=== PATIENT | female | born 2000 | race African-American/Black ===

== ENCOUNTER 2019-01-12 15:07 | Emergency (ER) | payer MEDICAID, OTHER ==
--- NOTE | 2019-01-12 16:21 | ER Document Report ---
ED Medical Screen (RME) - General Chief Complaint: Toe Injury Stated Complaint: TOE PAIN Time Seen by Provider: 01/12/19 16:21 Primary Care Provider: LEANNE MENCHACA MD [Primary Care Provider] - Follow up as needed TRAVEL OUTSIDE OF THE [place] IN LAST 30 DAYS: No - Related Data Allergies/Adverse Reactions: No Known Allergies Allergy (Verified 01/12/19 15:07) Past Medical History Pulmonary Medical History: Reports: Hx Asthma - Immunizations Immunizations up to date: Yes Physical Exam - Vital signs Vitals: Temp Pulse Resp BP Pulse Ox 99.5 F 125 H 18 154/99 H 98 01/12/19 15:31 01/12/19 15:31 01/12/19 15:31 01/12/19 15:31 01/12/19 15:31 Course - Vital Signs Vital signs: Temp Pulse Resp BP Pulse Ox 99.5 F 125 H 18 154/99 H 98 01/12/19 15:31 01/12/19 15:31 01/12/19 15:31 01/12/19 15:31 01/12/19 15:31 Doctor's Discharge - Discharge Referrals: LEANNE MENCHACA MD [Primary Care Provider] - Follow up as needed
--- NOTE | 2019-01-12 16:40 | ER Document Report ---
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 denies any bleeding currently. denies any excessive blood loss or acute blood loss sx. no hx of bleeding or clotting disorders. states also may have recently cut her toe nails a little too short. no numbness,weakness or tingling. no surgeries on this extremity. hasn't taken anything for her sx. bleeding spontaneously stopped once she stopped picking at her toe and left it alone very soon after. hasn't sought care until now. no pain anywhere else. pt able to walk. denies intoxication. pain worse with movement and palpation. better with rest. denies . she requests a work note. no hx of diabetes. no recent abx or steroids. hasn't put anything on the area. no other fall or trauma or associated sx Associated Symptoms: denies: Fever, Leg swelling, Shortness of breath, Weakness Exacerbated by: Standing, Movement, Walking Relieved by: Remaining still Similar symptoms previously: No Recently seen / treated by doctor: No - ROS Systems Reviewed and Negative: Yes All other systems reviewed and negative - to include 10 systems, unless mentioned in the hpi - REPRODUCTIVE Reproductive: DENIES: : Past Medical History - General Information source: Patient, Parent - mom - Social History Smoking Status: Unknown if Ever Smoked Frequency of alcohol use: None Drug Abuse: None Family History: Reviewed & Not Pertinent Pulmonary Medical History: Reports: Hx Asthma - prn when sick. stable, mild, controlled Endocrine Medical History: Reports: None. Denies: Hx Diabetes Mellitus Type 1, Hx Diabetes Mellitus Type 2 Surgical Hx: Negative - Immunizations Immunizations up to date: Yes Hx Diphtheria, Pertussis, Tetanus Vaccination: Yes Vertical Provider Document - CONSTITUTIONAL Exam Limitations: No Limitations Notes: GENERAL_APPEARANCE: alert and oriented x 3, mood and affect wnl, cooperative, no obvious discomfort. Pleasant, obese young black female, smiling, speaking in full sentences, in no sign of pain or resp distress, easily sitting up, mother and siblings at bedside VITALS: reviewed, see vital signs table. HEAD: no_swelling\tenderness on the head, normocephalic, atraumatic NECK: supple, no_neck_tenderness. full rom and full strength. no sign of central cord syndrome, meningitis, or spinal cord involvement HEART: RRR LUNGS: CTAB, good air exchange diffusely EXTREMITIES: good pulses in all extremities, right foot: right great toe: has no erythema, no swelling, mild tenderness around the lateral nail bed. no swelling or sign of infection. no drainable fluid collection. no erythema, no drainage, streaking, induration, fluctuation, sign of felon, or bleeding. no crepitation. no tinea unguium, no grossly overt ingrown toenail. nails are cut short however. no sugbungual hematoma. no sign of gout or septic jt. no ttp anywhere else and no_abrasions\lacerations other than as noted. Full rom and full strength. Normal gait. good hand carton folder. brisk cap refill. no other shortening or rotation of the limb or obvious deformities to suggest trauma unless otherwise noted. no other swelling or ttp. SKIN: warm, dry, good_color. no rash. no other grossly visible overlying skin changes to suggest trauma NEURO: motor_intact and sensory_intact in injured_extremity. cranial nerves 2- 12 intact - INFECTION CONTROL TRAVEL OUTSIDE OF THE [place] IN LAST 30 DAYS: No Course - Re-evaluation Re-evalutation: pt here for for mild irritation around her right great toe nail. she may have a developing ingrown toenail as she has been picking at the skin around the nail for the last few days and cut her toe nails too short. there is no sign of a drainable fluid collection, felon, tinea, or excisable ingrown toenail at this time. there is no sign of cellulitis or erythema or bleeding. no subungual hemorrhage. the pt also requests a work note. there was no other actual trauma to the area so no imaging was done. pt ambulates normally and didn't want any forms of immobilization. advised sx care. advised wound care and to monitor for signs of infection. i do not feel abx are warranted at this time given she is otherwise healthy, no significant pain, fevers, swelling, redness, discharge, or change in neurologic. otc meds for pain. epson salt soaks. advised to avoid picking at the skin on her toes and trimming her nails so short. advised to f/u with pcp/podiatry in 1-2 days. return for any worsening symptoms. vss. well appearing. satting well on ra. neurononfocal. pt understands and agrees to plan. On reexam, pt remained stable. nontoxic. well appearing. pain controlled. tolerating po. requesting to go home. neurononfocal. Documentation achieved through voice recording which my lead to some occasional accidental typographical errors. Extensive efforts have been made to proof read documentation to make sure these are the least as possible. - Vital Signs Vital signs: Temp Pulse Resp BP Pulse Ox 99.5 F 125 H 18 154/99 H 98 01/12/19 15:31 01/12/19 15:31 01/12/19 15:31 01/12/19 15:31 01/12/19 15:31 Temp Pulse Resp BP Pulse Ox 01/12/19 16:44 98.9 F 88 18 156/91 H 99 01/12/19 16:38 87 01/12/19 15:31 99.5 F 125 H 18 154/99 H 98 Discharge - Discharge Clinical Impression: Ingrowing right great toenail, Encounter to obtain excuse from work, Toe pain, right Condition: Good Disposition: HOME, SELF-CARE Instructions: Ingrown Nail ([facility]) Additional Instructions: Follow-up with PCP/podiatry 1 to 2 days. Return for any worsening symptoms. Epson salt soaks. Clean with warm soapy water. Neosporin to the area. Avoid picking the skin around the toenail or cutting your toenails too short. Forms: Return to Work Referrals: LEANNE MENCHACA MD [ACTIVE STAFF] - Follow up in 3-5 days
[2019-01-12 16:45] VITALS: BP 156/91
== END 2019-01-12 16:45 | disposition home or self-care (01) ==
LOC: ER 15:07
DX: L60.0 Ingrowing nail (principal); M79.674 Pain in right toe(s); J45.909 Unspecified asthma, uncomplicated; E66.9 Obesity, unspecified
CPT/HCPCS: 99283

== ENCOUNTER 2019-11-20 14:54 | Emergency (ER) | payer MEDICAID ==
--- NOTE | 2019-11-20 15:36 | ER Document Report ---
ED Extremity Problem, Lower - General Chief Complaint: Ankle Injury Stated Complaint: ANKLE INJURY Time Seen by Provider: 11/20/19 15:33 Primary Care Provider: [facility] [Provider Group] - Follow up as needed INEZ LUDWIG MD [Primary Care Provider] - Follow up as needed CAPRICE NICHOLSON DPM [ACTIVE STAFF] - Follow up as needed Mode of Arrival: Ambulatory Information source: Patient Notes: 19-year-old female presented to ED for complaint of pain to her low right ankle. Started 3 days ago when she was walking her dog. She states that is not getting better so she came to the emergency room to have it examined. She is alert oriented respirations regular nonlabored speaking in full sentences. TRAVEL OUTSIDE OF THE [place] IN LAST 30 DAYS: No - HPI Patient complains to provider of: Injury, Pain Location: Ankle Occurred: Other - 3 days ago Where: Outdoors Onset/Duration: Sudden - Walking the dog, Gradual Quality of pain: Achy Severity: Moderate Pain Level: 3 Context: Twisted Recent injury: Possibly Associated symptoms: Painful ambulation Exacerbated by: Hanging down, Movement, Walking Relieved by: Elevation, Ice - Related Data Allergies/Adverse Reactions: No Known Allergies Allergy (Verified 01/12/19 15:07) Past Medical History - General Information source: Patient - Social History Smoking Status: Never Smoker Frequency of alcohol use: None Drug Abuse: None Lives with: Family Family History: Reviewed & Not Pertinent Patient has suicidal ideation: No Patient has homicidal ideation: No - Past Medical History Cardiac Medical History: Reports: None Pulmonary Medical History: Reports: Hx Asthma - prn when sick. stable, mild, controlled EENT Medical History: Reports: None Neurological Medical History: Reports: None Endocrine Medical History: Reports: None Renal/ Medical History: Reports: None Malignancy Medical History: Reports: None GI Medical History: Reports: None Musculoskeletal Medical History: Reports None Skin Medical History: Reports None Psychiatric Medical History: Reports: None Traumatic Medical History: Reports: None Infectious Medical History: Reports: None Surgical Hx: Negative - Immunizations Immunizations up to date: Yes Hx Diphtheria, Pertussis, Tetanus Vaccination: Yes Review of Systems - Review of Systems Constitutional: No symptoms reported EENT: No symptoms reported Cardiovascular: No symptoms reported Respiratory: No symptoms reported Gastrointestinal: No symptoms reported Genitourinary: No symptoms reported Female Genitourinary: No symptoms reported Musculoskeletal: Ankle swelling - Pain and swelling Skin: No symptoms reported Hematologic/Lymphatic: No symptoms reported Neurological/Psychological: No symptoms reported Physical Exam - Vital signs Vitals: Temp Pulse Resp BP Pulse Ox 99.6 F 129 H 18 157/106 H 99 11/20/19 15:00 11/20/19 15:00 11/20/19 15:00 11/20/19 15:00 11/20/19 15:00 Interpretation: Normal - General General appearance: Appears well, Alert - HEENT Head: Normocephalic, Atraumatic Eyes: Normal Pupils: PERRL - Respiratory Respiratory status: No respiratory distress Chest status: Nontender Breath sounds: Normal Chest palpation: Normal - Cardiovascular Rhythm: Regular Heart sounds: Normal auscultation Murmur: No - Abdominal Inspection: Normal Distension: No distension Bowel sounds: Normal Tenderness: Nontender Organomegaly: No organomegaly - Back Back: Normal, Nontender - Extremities General upper extremity: Normal inspection, Nontender, Normal color, Normal ROM, Normal temperature General lower extremity: Normal color, Normal temperature. No: Antonella's sign Ankle: Tender, Edema, Limited ROM, Unable to bear weight Foot: Tender, Ecchymosis, Edema - Neurological Neuro grossly intact: Yes Cognition: Normal Orientation: AAOx4 Brenna Coma Scale Eye Opening: Spontaneous [place] Coma Scale Verbal: Oriented Brenna Coma Scale Motor: Obeys Commands Brenna Coma Scale Total: 15 Speech: Normal Motor strength normal: LUE, RUE, LLE, RLE Sensory: Normal - Psychological Associated symptoms: Normal affect, Normal mood - Skin Skin Temperature: Warm Skin Moisture: Dry Skin Color: Normal Course - Re-evaluation Re-evalutation: 11/20/19 23:30 The patient is nontoxic appearing with stable vitals. They are afebrile. Ankle exam shows no deformities with no obvious ligament instability. There is a normal pulse and sensation distally. There is no redness or signs of infection. X-rays show no acute fracture per the radiologist. Patient will be placed in an Joe wrap for comfort. Crutches will be offered and given if requested. Patient will be instructed to follow-up with not better in 1 week, sooner for increasing pain, fever, redness, numbness, tingling, weakness, any further concerns. Patient will be instructed to rest, ice, elevate their ankle. - Vital Signs Vital signs: Temp Pulse Resp BP Pulse Ox 98.9 F 102 H 18 148/101 H 100 11/20/19 16:55 11/20/19 16:55 11/20/19 16:55 11/20/19 16:55 11/20/19 16:55 - Diagnostic Test Radiology reviewed: Image reviewed, Reports reviewed Procedures - Immobilization Right Ankle Time completed: 16:55 Immobilizer type: Joe wrap, Ankle stirrup, Crutches Performed by: PCT Post-Proc Neuro Vasc Exam: Normal Alignment checked and good: Yes Discharge - Discharge Clinical Impression: Sprain of right ankle Qualifiers: Encounter type: initial encounter Involved ligament of ankle: unspecified ligam ent Qualified Code(s): S93.401A - Sprain of unspecified ligament of right ankle, initial encounter HTN (hypertension) Qualifiers: Hypertension type: unspecified Qualified Code(s): I10 - Essential (primary) hypertension Condition: Stable Disposition: HOME, SELF-CARE Additional Instructions: SPRAINED ANKLE: Your sprained ankle results from stretching or tearing of the ligaments which support the ankle. This usually results from twisting the foot inward and under. The ligaments will require time and protection in order to heal properly. Many ankle sprains are quite disabling, and should be taken seriously. The usual treatment for an ankle sprain is cold packs; protection with tape, splints, or wraps; elevation; and staying off the ankle for at least a day. As the ankle improves, you can walk IF it's not painful to bear weight. Sports are best postponed until healing is complete. More serious sprains usually require strengthening exercises after early healing. Your physician has assessed the seriousness of the ligament injury to your ankle. However, the treatment may change, depending on how your ankle progresses. If further exams were recommended, it is important that you follow through. Call the doctor if your foot becomes numb, painful, or severely swollen. ANKLE STIRRUP SPLINT: You are to use an ankle brace called a stirrup splint. This type of brace allows you to place greater stresses on the ankle without risk of re-injury, and is often used for more severe ankle injuries such as avulsion fractures and ligament ruptures. The splint can be worn over a sock or tape. For proper support, wear the splint with a shoe over it. It's important that the splint fit properly. Adjust the heel tension, if needed. If your splint has air bladders, peel back the bottom of each air bladder, then move the Velcro attachment of the heel strap up or down. Air bladder pressure can be adjusted by pulling up the valve at the top, threading the air tube down into the main bladder, then blowing air into the bladder or squeezing it out. The two sides of the stirrup can be moved forward or back on your ankle by changing the attachment of the main straps. If you are unable to use the ankle comfortably in the splint, return for re-evaluation. HIGH BLOOD PRESSURE REQUIRING TREATMENT: Your blood pressure is high. This is called "hypertension." Today's reading was _146/103 (normal is less than 140/90). Your history and exam suggest that this is not a temporary problem. You need treatment of your blood pressure. If left untreated, high blood pressure greatly increases your risk of heart attack and stroke. Please don't ignore this problem. If you have blood pressure medicine but aren't using it regularly, start taking it again. Some simple things you can do to help are: Get some aerobic exercise for at least 20 minutes on a daily basis. (See your doctor before beginning any new exercise program.) Eat a low-fat diet. Lose excess weight. Avoid salty foods and avoid adding salt to any of the foods you eat. Avoid diet pills, decongestants, "energizing" herbs, and other medicines that elevate blood pressure. There are many different medicines that treat blood pressure. If your medication causes unpleasant side effects, call your doctor. There are others you can try. Treating hypertension is a life-long investment in your health. CALCIUM CHANNEL BLOCKERS: A medication of the calcium channel rishi type has been prescribed for you. Examples of this type of medicine are Calan, Isoptin, Procardia, and Cardizem. These medicines have a variety of uses, including prevention of angina attacks, treatment of blood pressure, regulation of certain heart rhythm problems, and prevention of migraine headaches. Calcium channel blockers work by interfering with the flow of calcium in cell membranes. This results in dilation of blood vessels, and slowing of electrical conduction in the heart. A slight dizziness (due to a fall in blood pressure) may occur with the first dose, and sometimes even with later doses. This may make you prone to dizziness if you stand up suddenly. Call the doctor if lightheadedness is severe, or if you develop palpitations, shortness of breath, or any other new or alarming symptoms. JOE WRAP: A compression dressing (joe wrap) has been placed. This helps hold the area still. It limits swelling and internal bleeding. The wrap should be comfortably snug -- not tight. You should feel a sense of pressure, but not severe pain under the wrap. Unless the physician tells you otherwise, you can adjust the wrap for comfort. If the wrap causes symptoms suggesting it's too tight -- uncomfortable pressure, swelling or discoloration beyond the wrap, numbness, or severe pain -- you must loosen the wrap. If these symptoms don't resolve promptly, return for re-evaluation. USE OF CRUTCHES: The doctor has recommended that you not bear weight at this time. You will need to use crutches. Adjust the crutches so the tops come to about two inches under the armpit while you are standing upright. Use your hands -- not your armpits -- to support your weight. To get into a chair, support yourself with one crutch on the injured side. Hold the chair with the other hand, then lower yourself while putting all your weight on the good leg. Going up stairs is `good leg up, step up, then bring up crutches and bad leg.' Down stairs is `bad leg and crutches down, then bring good leg down.' If you develop numbness or swelling in an arm or hand, you are using the crutches incorrectly. Return if you are having any problems with the crutches. ICE & ELEVATION: Apply ice packs frequently against the painful area. Many different schedules are recommended, such as "20 minutes on, 20 minutes off" or "one hour ice, two hours rest." If you need to work, you may need to go longer between ice treatments. You should plan to have the area ice packed AT LEAST one-fourth of the time. The ice should be applied over the wrap, tape, or splint, or over a layer of cloth -- not directly against the skin. Some ice bags have a built-in cloth and can be put directly on the skin. Your injured part should be elevated as much as possible over the next 48 hours. Try to keep the injury above the level of the heart. Avoid use of the injured area. Elevation and rest will decrease the swelling. USE OF [id number] IBUPROFEN: Ibuprofen (Advil, Nuprin, Medipren, Motrin IB) is a medication for fever and pain control. In addition, it has anti- inflammatory effects which may be beneficial, especially in the treatment of injuries. It's best to take ibuprofen with food. Persons with ulcer disease or allergy to aspirin should notify their physician of this before taking ibuprofen. Ibuprofen can be given every four to six hours, for a total of four doses daily. Age Pain or fever dose Antiinflammatory dose 6-8 yr 200 mg (1 tab) 200 mg (1 tab) 9-11 yr 200 mg (1 tab) 200-400 mg (1-2 tab) 11-14 yr 200-400 mg (1-2 tab) 400 mg (2 tab) 15-adult 400 mg (2 tab) 600 mg (3 tab) FOLLOW-UP CARE: If you have been referred to a physician for follow-up care, call the physicians office for an appointment as you were instructed or within the next two days. If you experience worsening or a significant change in your symptoms, notify the physician immediately or return to the Emergency Department at any time for re-evaluation. Prescriptions: Naproxen 500 mg PO BIDP PRN #20 tablet PRN Reason: Amlodipine Besylate [Norvasc 5 mg Tablet] 5 mg PO DAILY #30 tablet Forms: Elevated Blood Pressure Referrals: INEZ LUDWIG MD [Primary Care Provider] - Follow up as needed [facility] [Provider Group] - Follow up as needed CAPRICE NICHOLSON DPM [ACTIVE STAFF] - Follow up as needed
--- NOTE | 2019-11-20 16:12 | RADIOLOGY REPORT (SQ) ---
EXAM DESCRIPTION: ANKLE RIGHT COMPLETE IMAGES COMPLETED DATE/TIME: 11/20/2019 3:53 pm REASON FOR STUDY: Pain right ankle COMPARISON: None. NUMBER OF VIEWS: Three views. TECHNIQUE: AP, lateral, and oblique radiographic images acquired of the right ankle. LIMITATIONS: None. FINDINGS: MINERALIZATION: Normal. BONES: Os trigonum anatomic variant. No acute fracture or dislocation. No worrisome bone lesions. JOINTS: No effusions. SOFT TISSUES: No soft tissue swelling. No foreign body. OTHER: No other significant finding. IMPRESSION: NO RADIOGRAPHIC EVIDENCE OF ACUTE INJURY. TECHNICAL DOCUMENTATION: JOB ID: [id number] [employer]- All Rights Reserved Reading location - IP/workstation name: [email or web address]
[2019-11-20] MEDS ORDERED: AMLODIPINE BESYLATE 5 MG TABLET PO ONE (16:58)
[2019-11-20 17:00] VITALS: BP 148/101
== END 2019-11-20 17:04 | disposition home or self-care (01) ==
LOC: ER 14:54
DX: S93.401A Sprain of unspecified ligament of right ankle, initial encounter (principal); X58.XXXA Exposure to other specified factors, initial encounter; J45.909 Unspecified asthma, uncomplicated; I10 Essential (primary) hypertension; R58 Hemorrhage, not elsewhere classified; R60.0 Localized edema
CPT/HCPCS: 99283; 73610; J3490